=== PATIENT | male | born 1975 | race Caucasian/White ===

== ENCOUNTER 2021-04-10 11:40 | Emergency (ER) | payer MEDICAID ==
[~2021-04-10] VITALS: Ht 185.4 cm; Wt 131.5 kg
--- NOTE | 2021-04-10 11:51 | NUR ---
MD Rucker at bedside for assessment
--- NOTE | 2021-04-10 12:04 | NUR ---
Patient discharged to home in stable condition. Given ENT contacts and options for throat pain and instructed to follow up [facility]. Written and verbal after care instructions given. Patient verbalizes understanding of instructions. Stressed follow up or return to ER for worsening s/s.
[2021-04-10 12:08] VITALS: BP 123/76
== END 2021-04-10 12:10 | disposition home or self-care (01) ==
LOC: ER 11:40
DX: R49.0 Dysphonia (principal); F17.210 Nicotine dependence, cigarettes, uncomplicated; R03.0 Elevated blood-pressure reading, without diagnosis of hypertension
CPT/HCPCS: A4663